=== PATIENT | male | born 2000 | race Hispanic/Latino ===

== ENCOUNTER 2018-03-24 12:03 | Emergency (ER) | payer SELFPAY ==
[~2018-03-24] VITALS: Ht 165.1 cm; Wt 77.7 kg
[2018-03-24 12:09] VITALS: BP 142/85
== END 2018-03-24 13:30 | disposition home or self-care (01) ==
LOC: EME 12:03
DX: F10.129 Alcohol abuse with intoxication, unspecified (principal); S80.211A Abrasion, right knee, initial encounter; W19.XXXA Unspecified fall, initial encounter
CPT/HCPCS: 99281; 99285